=== PATIENT | female | born 1965 | race African-American/Black ===

== ENCOUNTER 2016-12-14 14:04 | Emergency (ER) | payer OTHER ==
[2016-12-14 14:47] VITALS: BP 139/79; PULSE 81; TEMP 98.1; BMI 33.5
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
[2016-12-14] MEDS ORDERED: DIPHTH,PERTUSS(ACELL),TET 0.5 ML DISP.SYRIN IM ONE (16:19)
== END 2016-12-14 16:26 | disposition home or self-care (01) ==
LOC: FER 14:04
PROC: 3E0234Z Introduction of Serum, Toxoid and Vaccine into Muscle, Percutaneous Approach (ICD-10-PCS; principal; 2016-12-14)
DX: S92.514A Nondisplaced fracture of proximal phalanx of right lesser toe(s), initial encounter for closed fracture (principal); X58.XXXA Exposure to other specified factors, initial encounter; Y93.89 Activity, other specified; Y92.9 Unspecified place or not applicable
CPT/HCPCS: 73660-TC; 90471; 90715; 99281-25